=== PATIENT | male | born 1995 | race Caucasian/White ===

== ENCOUNTER 2017-03-09 08:21 | Emergency (ER) | payer OTHER ==
[~2017-03-09] VITALS: Ht 182.9 cm; Wt 88.5 kg
[2017-03-09] MEDS ORDERED: SUMA25TA3 PO (08:35)
[2017-03-09] MEDS ORDERED: KETOROLAC 60 MG/2 ML VIAL (J1885) IM ONE (09:45)
[2017-03-09] MEDS ORDERED: METOCLOPRAMIDE 10 MG TAB PO ONE (10:30)
[2017-03-09] MEDS ORDERED: ACETAMINOPHEN 325 MG TAB PO ONE (10:30)
[2017-03-09] MEDS ORDERED: diphenhydrAMINE 25 MG CAP PO ONE (10:30)
[2017-03-09] MEDS ORDERED: NORCO, ANEXSIA 5/325MG TABLET (HYDROcodone/ACETAMINOPHEN) PO ONE (11:30)
[2017-03-09 11:35] VITALS: BP 123/78
== END 2017-03-09 11:44 | disposition home or self-care (01) ==
LOC: M ED 09:08
DX: G43.909 Migraine, unspecified, not intractable, without status migrainosus (principal); Z79.899 Other long term (current) drug therapy
CPT/HCPCS: 96372; 99282; J1885

== ENCOUNTER 2019-05-30 13:25 | Emergency (ER) | payer OTHER ==
[~2019-05-30] VITALS: Ht 185.4 cm; Wt 97.0 kg
[~2019-05-30 13:25] MED LIST: SUMA25TA3 PO
[2019-05-30] MEDS ORDERED: IBUP80TA PO (13:30)
[2019-05-30 14:34] VITALS: BP 145/77
--- NOTE | 2019-05-30 15:25 | REP ---
RIGHT ANKLE, FOUR VIEWS: There is no evidence of an acute fracture, dislocation or intrinsic bone disease. IMPRESSION: No fracture or dislocation. Electronically Signed by Pedro Hansen MD 05/31/2019 07:49 A
== END 2019-05-30 14:35 | disposition home or self-care (01) ==
LOC: M ED 13:25
DX: S93.401A Sprain of unspecified ligament of right ankle, initial encounter (principal); X50.1XXA Overexertion from prolonged static or awkward postures, initial encounter; Y92.89 Other specified places as the place of occurrence of the external cause; Y99.1 Military activity; R51 Headache; Z79.899 Other long term (current) drug therapy

== ENCOUNTER → 2020-09-10 | Outpatient (CLI) | payer OTHER ==
[~2020-09-10] MED LIST changes: +IBUP80TA PO
== END ==
LOC: M LABSMTC 14:07
PROVIDERS: ATTEND Pediatrics
DX: Z20.828 Contact with and (suspected) exposure to other viral communicable diseases (principal)